=== PATIENT | male | born 1950 | race Caucasian/White ===

== ENCOUNTER 2024-04-01 17:11 | Inpatient (IN) | payer MEDICARE, SELFPAY ==
[2024-03-31] VITALS (13 sets, daily range): BP systolic 112–145; BP diastolic 59–88; PULSE 65–66; BMI 26.4; BMI 25.6
[2024-03-31 17:38] LABS: Glucose - Point of Care 98 mg/dl (70-99)
[2024-03-31 17:48] LABS: % Basophils 0.6 % (0-2); % Eosinophils 2.3 % (0-6); % Immature Granulocytes 0.4 % (0-0.5); % Lymphocytes 31.1 % (20.5-51.1); % Monocytes 9.8 % (1.7-9.3); % Neutrophils 55.8 % (42.2-75.2); Absolute Basophils 0.1 10^3/uL (0-0.2); Absolute Eosinophils 0.2 10^3/uL (0-0.7); Absolute Lymphocytes 2.6 10^3/uL (1.2-3.4); Absolute Monocytes 0.8 10^3/uL (0.1-0.6); Absolute Neutrophils 4.7 10^3/uL (1.4-6.5); Hematocrit 41.2 % (39.0-52.0); Hemoglobin 14.5 g/dL (13.0-18.0); Mean Corp Hgb Conc. 35.2 g/dL (33.0-37.0); Mean Corpuscular Hgb 32.1 pg (27.0-31.0); Mean Corpuscular Volume 91.2 fL (80.0-94.0); Nucleated Red Blood Cells % 0 % (-); Platelet Count 152 10^3/uL (130-400); Red Blood Cell Count 4.52 10^6/uL (4.70-6.10); Red Cell Dist. Width 12.9 % (11.5-14.5); White Blood Cell Count 8.4 10^3/uL (4.8-10.8)
[2024-03-31 17:56] LABS: APTT 24.2 Sec (23.4-35.0); INR 1.06; PT 14.1 Sec (11.4-14.6)
[2024-03-31 18:00] LABS: ALT (SGPT) 20 U/L (0-50); AST (SGOT) 24 U/L (17-59); Albumin 4.3 g/dl (3.5-5.0); Alkaline Phosphatase 78 U/L (38-126); Blood Urea Nitrogen 28 mg/dl (9-20); Calcium 9.5 mg/dl (8.4-10.2); Carbon Dioxide 27 mmol/L (22-30); Chloride 105 mmol/L (98-107); Estimated Creatinine Clearance 61 ml/min; Glucose 103 mg/dl (70-99); Potassium 4.3 mmol/L (3.5-5.1); Sodium 143 mmol/L (135-145); Total Bilirubin 0.7 mg/dl (0.2-1.3); Total Protein 7.1 g/dl (6.3-8.2); eGFR > 60.00
--- NOTE | 2024-03-31 18:02 | ED.CVA ---
History of Present Illness
<Efrain Chao Jr., PA-C - Last Filed: 03/31/24 18:46>
General
Chief Complaint: CVA/TIA Symptoms
Source: patient
Exam Limitations: none
Time Seen by Provider: 03/31/24 17:41
Nursing documentation reviewed up to this point in time: agreed with
Onset of Stroke Symptoms
Onset of symptoms known: Yes
Date of onset of symptoms: 03/31/24
Time of onset of symptoms: 17:00
Time pt last seen normal is known: Yes
Date last time pt seen normal: 03/31/24
Time last time pt seen normal: 17:00
History of Present Illness
History of Present Illness:
74-year-old male past medical history of hyperlipidemia presenting to the emergency department after he suddenly had slurred speech and difficulty playing the drums while he was at a show 1 hour prior to assessment in the ER. He claims that
initially he felt somewhat confused and had trouble playing the drums which she normally is very proficient at. He had slurred speech according to his friends he denies any similar symptoms in the past no history of smoking drinking or any
significant chronic medical conditions or daily medications. Patient is not on blood thinners. He lives at symptoms have been improving since onset. Denies any additional numbness weakness changes in vision or facial drooping.
Review of Systems
<Efrain Chao Jr., PA-C - Last Filed: 03/31/24 18:46>
Review of Systems
Allergies reviewed?: Yes
All Other Systems: ROS reviewed and negative except as documented in HPI and ROS
Phy Exam
<Efrain Chao Jr., PA-C - Last Filed: 03/31/24 18:46>
Physical Exam
Physical Exam:
GENERAL: Alert , in no apparent distress
EYE: pupils equal and reactive
NECK: Supple, no significant adenopathy.
ENT: o/p clr, mmm.
CARDIAC: Regular rate and rhythm .
LUNGS: Clear breath sounds bilaterally, no acute respiratory distress, no wheezes/rales/rhonchi
ABDOMEN: Soft, without focal tenderness, no r/g, no cvat
NEUROLOGICAL: Alert and oriented, patient with slurred speech 5-5 upper and lower extremity strength normal sensation with palpating bilaterally normal finger-nose and [id number] no pronator drift patient walking with steady gait
SKIN: Warm and dry, skin intact.
MUSCULOSKELETAL: No edema, well perfused.
PSYCH: Normal and appropriate interaction.
Scores
<Efrain Chao Jr., PA-C - Last Filed: 03/31/24 18:46>
NIH Stroke Score
Level of Consciousness: 0 - Alert
LOC Questions: 0-Answers both correctly
LOC Commands: 0-Performs both correctly
Best Horizontal Gaze: 0-Normal
Visual Hameed: 0=Normal, no visual loss
Facial Palsy: 0=Normal, symmetrical
Motor - Right Arm: 0=No drift 10 seconds
Motor - Left Arm: 0=No drift 10 seconds
Motor - Right Le-No drift 5 seconds
Motor - Left Le-No drift 5 seconds
Limb Ataxia: 0-Absent
Sensation: 0-Normal
Best Language: 0-No aphasia
Dysarthria: 1-Mild slurring
Extinction and Inattention: 0-No abnormality
Total Score:: 1
Course
<Efrain Chao Jr., PA-C - Last Filed: 03/31/24 18:46>
Orders/Labs/Results
Orders:
Orders
03/31/24 17:38
Electrocardiogram (*1) Urgent
Reason for Study: Other
Other Reason for Exam: Possible Stroke
CT HEAD STROKE ALERT W/o Cont Urgent
Comment:
Reason For Exam: slurred speech
Bedside Glucose- Treatment ONCE
Cardiac Monitoring- Treatment ONCE
EKG- Treatment ONCE
IV Insert/Care/Rem.- Treatment PRN
Vital Signs As Directed
Frequency: Other
Weight As Directed
Frequency: Once
Comment: ZERO STRETCHER SCALE FOR ACCURATE WEIGHT
O2 Therapy [RESP] Urgent
Titrate/Wean O2 to maintain O2 sat greater than (%): 93
Special Instructions: MAINTAIN CONTINUOUS O2 SATS > OR = 93%
03/31/24 17:39
Complete Blood Count/With Diff Urgent
Comprehensive Metabolic Panel Urgent
PTT Urgent
Prothrombin Time Urgent
Troponin I Urgent
03/31/24 17:42
CT HEAD/NECK ANG STROKE ALERT Urgent
Reason For Exam: slurred speech
03/31/24 18:01
0.9% Sodium Chloride 1000 ml [Nss] 1,000 ml IV BOLUS
03/31/24 18:27
MR Brain W/o & With Contrast Routine
Comment:
Reason For Exam: dysarthria
OK for patient to be off Cardiac Monitoring for MRI: No
Recent pill cam endoscopy?: No
Abnormal Lab Results
03/31/24
17:39
RBC 4.52 L 10^6/uL
(4.70-6.10)
MCH 32.1 H pg
(27.0-31.0)
MPV 11.0 H fL
(7.4-10.4)
Absolute Monos (auto) 0.8 H 10^3/uL
(0.1-0.6)
Monocytes % 9.8 H %
(1.7-9.3)
BUN 28 H mg/dl
(9-20)
Glucose 103 H mg/dl
(70-99)
03/31/24 17:39
03/31/24 17:39
Vital Signs
Initial and Last Documented VS:
Initial Vital Signs
Pulse Resp BP Pulse Ox
81 19 138/80 98
03/31/24 17:32 03/31/24 17:32 03/31/24 17:32 03/31/24 17:32
Last Documented Vital Signs
Pulse Resp BP Pulse Ox
76 20 138/80 99
03/31/24 18:00 03/31/24 18:00 03/31/24 17:32 03/31/24 18:00
<Warren Murrell, DO - Last Filed: 03/31/24 18:06>
Orders/Labs/Results
Orders:
Orders
03/31/24 17:38
Electrocardiogram (*1) Urgent
Reason for Study: Other
Other Reason for Exam: Possible Stroke
CT HEAD STROKE ALERT W/o Cont Urgent
Comment:
Reason For Exam: slurred speech
Bedside Glucose- Treatment ONCE
Cardiac Monitoring- Treatment ONCE
EKG- Treatment ONCE
IV Insert/Care/Rem.- Treatment PRN
Vital Signs As Directed
Frequency: Other
Weight As Directed
Frequency: Once
Comment: ZERO STRETCHER SCALE FOR ACCURATE WEIGHT
O2 Therapy [RESP] Urgent
Titrate/Wean O2 to maintain O2 sat greater than (%): 93
Special Instructions: MAINTAIN CONTINUOUS O2 SATS > OR = 93%
03/31/24 17:39
Complete Blood Count/With Diff Urgent
Comprehensive Metabolic Panel Urgent
PTT Urgent
Prothrombin Time Urgent
Troponin I Urgent
03/31/24 17:42
CT HEAD/NECK ANG STROKE ALERT Urgent
Reason For Exam: slurred speech
03/31/24 18:01
0.9% Sodium Chloride 1000 ml [Nss] 1,000 ml IV BOLUS
03/31/24 18:27
MR Brain W/o & With Contrast Routine
Comment:
Reason For Exam: dysarthria
OK for patient to be off Cardiac Monitoring for MRI: No
Recent pill cam endoscopy?: No
Abnormal Lab Results
03/31/24
17:39
RBC 4.52 L 10^6/uL
(4.70-6.10)
MCH 32.1 H pg
(27.0-31.0)
MPV 11.0 H fL
(7.4-10.4)
Absolute Monos (auto) 0.8 H 10^3/uL
(0.1-0.6)
Monocytes % 9.8 H %
(1.7-9.3)
BUN 28 H mg/dl
(9-20)
Glucose 103 H mg/dl
(70-99)
03/31/24 17:39
03/31/24 17:39
Vital Signs
Initial and Last Documented VS:
Initial Vital Signs
Pulse Resp BP Pulse Ox
81 19 138/80 98
03/31/24 17:32 03/31/24 17:32 03/31/24 17:32 03/31/24 17:32
Last Documented Vital Signs
Pulse Resp BP Pulse Ox
76 20 138/80 99
03/31/24 18:00 03/31/24 18:00 03/31/24 17:32 03/31/24 18:00
<Efrain Chao Jr., PA-C - Last Filed: 03/31/24 18:46>
MDM/Problems Addressed
MDM/Problems Addressed:
74-year-old male presenting to the emergency department today with concerns of slurred speech while playing the drums at a show prior to arrival roughly 1 hour prior to arrival. Denies take any blood thinners. Initially had some confusion as well.
Symptoms have been improving over the past hour. Was able to package his stuff up at the scene and walk into the ER. Denies any numbness weakness chest pain headache or any trauma. Stroke alert was called due to his dysarthria. Neurology saw
the patient within 5 minutes assessed the patient at bedside. Initial CT findings reviewed neurology recommended holding TNK for now. Patient reassessed with full resolution of symptoms plan to admit for further assessment monitoring and MRI.
<Efrain Chao Jr., PA-C - Last Filed: 03/31/24 18:46>
*Critical Care Note
Total Time (30-74mins, 75-104mins- exclusive of procedures): Critical care statement:
comment:
Critical care statement: A total of 40 minutes of critical care time was provided for this patient. This includes management of unstable vital signs, evaluation of the patient at bedside, reviewing the patient's pertinent medical records, discussion
with consultants, review of old EKGs and review of pertinent medical records. This time with separate from time utilized to perform the aforementioned documented procedures
<Efrain Chao Jr., PA-C - Last Filed: 03/31/24 18:46>
Update Note
Update Note:
1840: Patient reassessed now asymptomatic. Denies any ongoing symptoms or concerns. Plan to admit for MRI and further monitoring overnight.
ED Attending Note
<Efrain Chao Jr., PA-C - Last Filed: 03/31/24 18:46>
-
Portions of this chart may have been created with voice recognition software.� Occasional wrong word or��sound alike� substitutions may have occurred due to the inherent limitations of voice recognition software.
<Warren Murrell DO - Last Filed: 03/31/24 18:06>
ED Attending Note
Patient seen and examined by attending physician: Yes
I performed the substantive portion of visit, reviewed & personally made and approve the management plan that is documented in note by myself or MAINE.: Yes
ED Attending Note:
Seen with physician bilingual executive assistant examined independently acute onset of aphasia and confusion, symptoms improved, CT noted report noted neuroconsult noted
Discharge Plan
Departure
Patient Disposition: Admit
Date of Disposition: 03/31/24
Time of Disposition: 18:44
Admit to: Telemetry
Admit to doctor: Carla
Presentation/result/management discussed w/ accepting MD/DO: Hospitalist
Patient with high blood pressure during this ER visit?: No
Condition: Good
Covid-19: Not Applicable
Discharge Problem:
Dysarthria
Interventions
Interventions:
*Risk Screen - Suicide Last Done: 03/31/24 17:44
*General Assessment Last Done: 03/31/24 17:44
*Neglect/Abuse Screening Last Done: 03/31/24 17:44
ED- Fall Risk Assessment Last Done: 03/31/24 17:44
*ED COVID-19 Vaccine History Last Done: 03/31/24 17:44
ED- Pulmonary Assessment Last Done: 03/31/24 17:44
ED- Neurological Assessment Last Done: 03/31/24 18:01
ED- Cardiac Assessment Last Done: 03/31/24 17:44
Discharge Date and Time
Print Language: HONDURAN
--- NOTE | 2024-03-31 18:02 | CON.NEURO ---
Consultation
Order
Date of Consultation: 03/31/24
Requesting Provider: Jeremie Zuniga PA-C
Reason for Consult: Stroke alert
Called in: 17:35
At bedside: 17:40
CC: Slurred speech
HPI: This is a 74-year-old right-handed man who presented to [facility] on 03/31/[facility]24 with dysarthria. According to patient's friend Mr. Mosqueda continued to play drums and staring after this all was over around 5 PM today.
Following the above he was noted to have dysarthria and transient left-sided facial weakness.
ER VS: 138/80, 81, 19, T-pending.
Labs: Glucose�103, normal sodium, WBCs, GFR.
PMH: Dyslipidemia
PSH: tonsillectomy
SH: , non-smoker, retired, no history of excessive alcohol use
FH: No family history of
All:NKDA
ROS:Constitutional: Negative. Negative for chills, fever and unexpected weight change.
HENT: Negative for ear pain, hearing loss, tinnitus and trouble swallowing.
Eyes: Negative. Negative for photophobia, pain and visual disturbance.
Respiratory: Negative for cough, choking and shortness of breath.
Cardiovascular: Negative for chest pain, palpitations and leg swelling.
Gastrointestinal: Negative for abdominal pain and vomiting.
Endocrine: Negative. Negative for cold intolerance.
Genitourinary: Negative for dysuria, flank pain and urgency.
Musculoskeletal: Negative for back pain, gait problem, neck pain and neck stiffness.
Skin: Negative for rash.
Allergic/Immunologic: Negative. Negative for immunocompromised state.
Neurological: Positive for dysarthria, transient left-sided facial weakness
Psychiatric/Behavioral: Negative for behavioral problems, confusion and hallucinations.
General: Well developed. In no acute distress.
Cardio: Regular rate and rhythm without murmur. Extremities are without cyanosis or edema.
Neuro:
Mental Status: Alert, oriented to person, place, and date. Impaired attention and recall. Good fund of knowledge. Follows complex requests across the midline. Comprehension, naming, and repetition intact.
Cranial Nerves: . Pupils are equally round and reactive to light. EOMs full. Visual wiggins full to confrontation. No ptosis. No nystagmus. V1-V3 intact to light touch and pinprick bilaterally, symmetric. Face symmetric. Normal hearing AU.
The palate elevated well. SCMs and traps 5/5. Tongue midline. Mild to moderate dysarthria
Motor: Normal bulk and tone. No pronator or arm drift. Strength 5/5 throughout. No clonus.
Reflexes: No clonus at the ankle
Sensory: No extinction to double simultaneous stimuli
Coordination: No dysmetria or tremor.
Gait: deferred
NIH stroke score-1.
Assessment and Plan:
I. Acute lacunar syndrome. Not a candidate for IV thrombolysis due to low NIH stroke score and clinical improvement. Differential diagnosis includes focal seizure, less likely neuro muscular junction disorder.
II. DLP
III. Mild encephalopathy
-Continue Telemetry monitoring.
-Aspiration precautions
-Aspirin load
-Please check TFTs, urine tox, EtOH level, hemoglobin A1c
-Brain MRI without tiffany
-TTE
-Follow-up CTA head and neck
-PT.
-DVT prophylaxis.
-Case was discussed with patient's spouse and medical personnel
I personally reviewed all radiology and labs along with past medical records pertinent to current medical problems. Total time spent in patient care is 60 minutes.
Thank you for allowing us to participate in the care of this patient. We will continue to follow. Please do not hesitate to contact us with any questions or concerns.
Subjective/Objective
Subjective Data
Date of Service: March 31, 2024
Objective Data
Vital Signs
Pulse Resp BP Pulse Ox
76 20 138/80 99
03/31/24 18:00 03/31/24 18:00 03/31/24 17:32 03/31/24 18:00
Lab Results
03/31/24 17:39
03/31/24 17:39
Sodium 143 mmol/L (135-145) 03/31/24 17:39
Potassium 4.3 mmol/L (3.5-5.1) 03/31/24 17:39
BUN 28 mg/dl (9-20) H 03/31/24 17:39
Glucose 103 mg/dl (70-99) H 03/31/24 17:39
Calcium 9.5 mg/dl (8.4-10.2) 03/31/24 17:39
Patient Allergies
No Known Allergies Allergy (Unverified 03/31/24 17:33)
Vital Signs and Labs
-
Vital Signs and Labs:
Vital Signs
Pulse Resp BP Pulse Ox
76 20 138/80 99
03/31/24 18:00 03/31/24 18:00 03/31/24 17:32 03/31/24 18:00
Lab Results
03/31/24 17:39
03/31/24 17:39
PT 14.1 Sec (11.4-14.6) 03/31/24 17:39
INR 1.06 03/31/24 17:39
APTT 24.2 Sec (23.4-35.0) 03/31/24 17:39
Sodium 143 mmol/L (135-145) 03/31/24 17:39
Potassium 4.3 mmol/L (3.5-5.1) 03/31/24 17:39
BUN 28 mg/dl (9-20) H 03/31/24 17:39
Glucose 103 mg/dl (70-99) H 03/31/24 17:39
Calcium 9.5 mg/dl (8.4-10.2) 03/31/24 17:39
[2024-03-31 18:12] LABS: Troponin I < 0.012 ng/ml
[2024-03-31] MEDS: NSS 1000 IV (18:21)
--- NOTE | 2024-03-31 19:39 | HPS.HSE ---
Family Physician
-
Family Physician: Danelle Ramirez
Chief Complaint
-
Speech difficulty
History of Present Illness
Patient is a 74y M with PMH significant for dyslipidemia who presents to ED complaining of slurred speech and lack of coordination. Patient states that he was playing drums this afternoon and he noted that he had a runny nose. He sneezed twice
and following this his band-mate noted that he was playing off-beat / erratically. He asked the patient a question and - when he responded - he noted that the patient's speech was slurred. Patient reports mild headache diffusely. He felt
lightheaded and felt as if he was leaning to the L. He did not fall. He did not lose consciousness. He has full recall of the event.
Onset of his symptoms was about 4:30 PM. He presented to the ED for further evaluation. He started to improve within an hour and patient states that by 5:45 PM he was back to his normal self.
Patient has no complaints at present. He denies any prior history of similar symptoms.
Medical History
Past Medical History
Past Medical History: Reports Other
Additional Past Medical History:
Mild Dyslipidemia
Past Surgical History: Reports Other
Additional Past Surgical History:
T&A
Appendectomy
Social History
Tobacco: Non-smoker
Alcohol: None
Drug: None
Personal:
Living: With Family
Family History
Family History: Other (Father: CAD, at 65 secondary to [place]. Mother: Longevity)
Allergies / Home Medications
Allergies reflects when Allergies were last updated in [facility].
Home Medications with original date entered in [employer]
Allergy/Medication List:
Allergies
Allergy/AdvReac Type Severity Reaction Status Date / Time
No Known Allergies Allergy Unverified 03/31/24 17:33
Home Medications
ascorbic acid (vitamin C) 500 mg tablet (Vitamin C) 500 mg PO DAILY 03/31/24
cholecalciferol (vitamin D3) 25 mcg (1,000 unit) tablet (Vitamin D3) 25 mcg PO DAILY 03/31/24
zinc sulfate 50 mg zinc (220 mg) tablet 50 mg PO DAILY 03/31/24
Review of Systems
-
History Source: Patient
A 12 point ROS was completed and negative except as noted: Yes
Constitutional: Denies Fever or Chills
EENT: Reports Runny Nose; Denies Sore Throat
Respiratory: Denies Cough or Trouble Breathing
Cardiac: Denies Chest Pain or Palpitations
Abdomen/GI: Denies Abdominal Pain, Nausea, Vomiting or Diarrhea
: Denies Dysuria, Frequency or Flank Pain
Musculoskeletal: Denies Joint Pain or Edema
Neurological: Reports Dizzy, Headache and Other (Slurred speech.); Denies Weakness or Numbness
Psych: Denies Depression or Anxiety
Physical Exam
Vital Signs
Vital Signs
Pulse Resp BP Pulse Ox
76 20 138/80 99
03/31/24 18:00 03/31/24 18:00 03/31/24 17:32 03/31/24 18:00
Physical Exam
General: Other (74y M in no acute distress.)
HEENT: Moist mucous membranes and PERRLA
Respiratory: Clear; No Wheezes, Rales or Rhonchi
Cardiac: S1/S2 and Regular Rhythm; No Murmur
GI: Soft, Non Tender, Non Distended and Normal Bowel Sounds
Musculoskeletal: No Clubbing, No Cyanosis and No Edema
Neuro: AO x 3 and Other (Faint L facial droop and perhaps some very mild L sided weakness - though patient is R dominant.)
Psych: No Agitated or Anxious
Laboratory Results
-
03/31/24 17:39
03/31/24 17:39
Laboratory Results
PT 14.1 Sec (11.4-14.6) 03/31/24 17:39
INR 1.06 03/31/24 17:39
APTT 24.2 Sec (23.4-35.0) 03/31/24 17:39
Total Bilirubin 0.7 mg/dl (0.2-1.3) 03/31/24 17:39
AST 24 U/L (17-59) 03/31/24 17:39
ALT 20 U/L (0-50) 03/31/24 17:39
Alkaline Phosphatase 78 U/L (38-126) 03/31/24 17:39
Troponin I < 0.012 ng/ml 03/31/24 17:39
Impression/Plan
-
A/P: Patient is a 74y M with PMH significant for dyslipidemia who presents to ED complaining of slurred speech and lack of coordination.
CVA / TIA
- Observe overnight for further evaluation and treatment.
- CT shows no evidence of acute CVA. CTA unremarkable.
- Patient currently feels back to baseline - though I may appreciate vague L sided weakness on exam.
- Not tPA candidate given low NIH at present / improvement in symptoms.
- ASA daily.
- Check lipids, A1C, etc.
- Appreciate Neurology evaluation / input.
- Check MRI brain with / without in the AM for further evaluation.
- Follow for changes in neurologic exam overnight.
Cerebellar 'Lesion'
- CT done in the ED shows 1.2cm R cerebellar abnormality - not consistent with bleed, mass, etc.
- Area may be consistent with diminished coordination, but not slurred speech.
- Follow-up results of MRI as noted above.
- Appreciate Neuro input / recommendations.
DVT Prophylaxis: SCDs
Code Status: Full
--- NOTE | 2024-03-31 20:30 | TRANSFER ---
pt arrived from ED via stretcher. pt ambulated from stretcher, to standing scale, and then to bed without assistance. AAOx3. VSS. pt oriented to room, call beltran within reach. plan of care ongoing.
[2024-04-01] VITALS (7 sets, daily range): BP systolic 111–138; BP diastolic 38–71; PULSE 56–67
[2024-04-01 07:18] LABS: Hematocrit 39.9 % (39.0-52.0); Mean Corp Hgb Conc. 35.1 g/dL (33.0-37.0); Mean Corpuscular Hgb 32.4 pg (27.0-31.0); Mean Corpuscular Volume 92.4 fL (80.0-94.0); Mean Platelet Volume 11.3 fL (7.4-10.4); Platelet Count 140 10^3/uL (130-400); Red Blood Cell Count 4.32 10^6/uL (4.70-6.10); Red Cell Dist. Width 12.9 % (11.5-14.5); White Blood Cell Count 7.3 10^3/uL (4.8-10.8)
[2024-04-01 07:46] LABS: Blood Urea Nitrogen 25 mg/dl (9-20); Calcium 8.9 mg/dl (8.4-10.2); Carbon Dioxide 24 mmol/L (22-30); Chloride 108 mmol/L (98-107); Estimated Creatinine Clearance 77 ml/min; Glucose 91 mg/dl (70-99); HDL Cholesterol 50 mg/dl; LDL Cholesterol, Calculated 133 mg/dl; Potassium 4.4 mmol/L (3.5-5.1); Sodium 141 mmol/L (135-145); Total Cholesterol 205 mg/dl (50-199); Triglyceride 113 mg/dl (10-149); Very Low Density Lipoprotein 22 mg/dl (0-30); eGFR > 60.00
[2024-04-01] MEDS: LOW STRENGTH ASPIRIN 81 MG PO (08:04)
[2024-04-01 08:38] LABS: Glycohemoglobin (HgbA1c) 5.4 % (4.0-5.6)
--- NOTE | 2024-04-01 08:50 | W.PN.HOSP.TC ---
Today's Communication/Plan
-
ECHO and MRI
If neg will discharge
Assessment / Plan
Assessment / Plan
74-year-old with slurry speech and confusion
CTA-no abnormality
CT head-small region of increased attenuation in the right cerebellum
CVS: S1-S2 normal
Chest: CTA B/L
Abdomen: Soft, NT / Bowel sounds present
Extremities: No edema, normal pulses
MAGNETIC PROSPECTING OPERATOR: Non focal exam
#CVA / TIA symptoms
Aphasia and ( friend noted facial droop)
CT without any evidence of CVA CTA unremarkable
Continue neurochecks and NIH scale
Continue aspirin, plavix
Lipid panel shows LDL of 133 started on statin
MRI of the brain
ECHO per Neurology
Neurology evaluation
# Cerebellar lesion CT shows 1.2 cm right cerebellar abnormality
Await MRI with and without contrast
# DVT prophylaxis-SCDs
# Full code
D/W RN
D/W at bed side
Anticipated Discharge: Within 24 hours
Subjective/Interval History
-
Date of Service: April 01, 2024
Objective Data
-
Labs:
Laboratory Results
04/01/24
06:48
WBC 7.3
Hgb 14.0
Hct 39.9
Plt Count 140
Sodium 141
Potassium 4.4
Chloride 108 H
Carbon Dioxide 24
BUN 25 H
Creatinine 0.9
Glucose 91
Calcium 8.9
Vital Signs:
Vital Signs
Temp Pulse Resp BP Pulse Ox
97.6 F 56 16 129/71 99
04/01/24 07:15 04/01/24 07:15 04/01/24 07:15 04/01/24 07:15 04/01/24 07:15
I&O
03/31/24 04/01/24 04/02/24
06:59 06:59 06:59
Intake Total 480 / 480
Balance 480 / 480
--- NOTE | 2024-04-01 09:33 | PTOTSP ---
SOFTWARE QUALITY ENGINEER Evaluation
No signs concerning for aphasia observed. [place] Cognitive Assessment (MOCA) Version 8.1 score = 28/30, WNL (26 or greater). Patient with mild 'lisp' but 100% intelligible and reported this as chronic/baseline. No SOFTWARE QUALITY ENGINEER follow up for
speech/cognition warranted at this time.
--- NOTE | 2024-04-01 10:21 | W.PN.NEURO.1 ---
Today's Communication / Plan
-
.
Subjective/Objective
Subjective Data
Date of Service: April 01, 2024
Neurology follow-up Note.
Mr. Mosqueda states that his speech deficits have resolved within several hours from the onset. No reports of headaches, change in vision, strength or sensation.
He has been normotensive and afebrile.
LDL�133, TSH�3.7.
Brain MRI is pending
EKG: RBBB, QTc Int : 445 m
Labs: Glucose�103, normal sodium, WBCs, GFR.
CT head�no hemodynamically significant stenosis
PMH: Dyslipidemia, vitamin D deficiency
PSH: tonsillectomy
SH: , retired insurance specialist, non-smoker, no history of excessive alcohol use
FH: Mother at the age of 100, father in his 60s, had coronary artery disease
All:NKDA
ROS:Constitutional: Negative. Negative for chills, fever and unexpected weight change.
HENT: Negative for ear pain, hearing loss, tinnitus and trouble swallowing.
Eyes: Negative. Negative for photophobia, pain and visual disturbance.
Respiratory: Negative for cough, choking and shortness of breath.
Cardiovascular: Negative for chest pain, palpitations and leg swelling.
Gastrointestinal: Negative for abdominal pain and vomiting.
Endocrine: Negative. Negative for cold intolerance.
Genitourinary: Negative for dysuria, flank pain and urgency.
Musculoskeletal: Negative for back pain, gait problem, neck pain and neck stiffness.
Skin: Negative for rash.
Allergic/Immunologic: Negative. Negative for immunocompromised state.
Neurological: Positive for transient dysarthria and left facial weakness, chronic word finding difficulties
Psychiatric/Behavioral: Negative for behavioral problems, confusion and hallucinations.
General: Well developed. In no acute distress.
Cardio: Regular rate and rhythm without murmur. Extremities are without cyanosis or edema.
Neuro:
Mental Status: Alert, oriented to person, place, and date. Able to do serial sevens. Good fund of knowledge. Follows complex requests across the midline. Comprehension, naming, and repetition intact.
Cranial Nerves: . Pupils are equally round and reactive to light. EOMs full. Visual wiggins full to confrontation. No ptosis. No nystagmus. V1-V3 intact to light touch and pinprick bilaterally, symmetric. Face symmetric. Impaired l hearing AU.
The palate elevated well. SCMs and traps 5/5. Tongue midline. No dysarthria
Motor: Normal bulk and tone. No pronator or arm drift. Strength 5/5 throughout. No clonus.
Reflexes: No clonus at the ankle
Sensory: Normal light touch
Coordination: Intermittent resting head tremor. No dysmetria
Gait: deferred
Assessment and Plan:
I. TIA
II. Chronic mild expressive aphasia
III. Dyslipidemia
-Continue Telemetry monitoring.
-Continue aspirin 81 mg and Plavix 75 mg daily
-Please check vitamin B12 urine tox, EtOH level, hemoglobin A1c
-Brain MRI without tiffany
-TTE
-DVT prophylaxis.
-Case was discussed with patient's spouse and medical personnel
I personally reviewed all radiology and labs along with past medical records pertinent to current medical problems. Total time spent in patient care is 36 minutes.
Thank you for allowing us to participate in the care of this patient. We will continue to follow. Please do not hesitate to contact us with any questions or concerns.
Objective Data
Vital Signs
Temp Pulse Resp BP Pulse Ox
36.4 C 56 16 129/71 99
04/01/24 07:15 04/01/24 07:15 04/01/24 07:15 04/01/24 07:15 04/01/24 07:15
Lab Results
04/01/24 06:48
04/01/24 06:48
PT 14.1 Sec (11.4-14.6) 03/31/24 17:39
INR 1.06 03/31/24 17:39
APTT 24.2 Sec (23.4-35.0) 03/31/24 17:39
Sodium 141 mmol/L (135-145) 04/01/24 06:48
Potassium 4.4 mmol/L (3.5-5.1) 04/01/24 06:48
BUN 25 mg/dl (9-20) H 04/01/24 06:48
Glucose 91 mg/dl (70-99) 04/01/24 06:48
Calcium 8.9 mg/dl (8.4-10.2) 04/01/24 06:48
LDL Cholesterol, Calc 133 mg/dl 04/01/24 06:48
Patient Allergies
No Known Allergies Allergy (Unverified 03/31/24 17:33)
Vital Signs and Labs
-
Vital Signs and Labs:
Vital Signs
Temp Pulse Resp BP Pulse Ox
36.4 C 56 16 129/71 99
04/01/24 07:15 04/01/24 07:15 04/01/24 07:15 04/01/24 07:15 04/01/24 07:15
Lab Results
04/01/24 06:48
04/01/24 06:48
PT 14.1 Sec (11.4-14.6) 03/31/24 17:39
INR 1.06 03/31/24 17:39
APTT 24.2 Sec (23.4-35.0) 03/31/24 17:39
Sodium 141 mmol/L (135-145) 04/01/24 06:48
Potassium 4.4 mmol/L (3.5-5.1) 04/01/24 06:48
BUN 25 mg/dl (9-20) H 04/01/24 06:48
Glucose 91 mg/dl (70-99) 04/01/24 06:48
Calcium 8.9 mg/dl (8.4-10.2) 04/01/24 06:48
LDL Cholesterol, Calc 133 mg/dl 04/01/24 06:48
Medications
-
Medications:
Generic Name Dose Route Start Last Admin
Trade Name Freq PRN Reason Stop Dose Admin
Acetaminophen 650 mg 03/31/24 20:39
Acetaminophen 325 Mg Tablet PO 04/28/24 20:38
Q4HPRN PRN
Mild Pain / Temp > 101
Aspirin 81 mg 04/01/24 08:00 04/01/24 08:04
Aspirin 81 Mg Chewable Tablet PO 04/29/24 07:59 81 mg
DAILY JOCELYN Administration
Sodium Chloride 0 flush 03/31/24 21:00
Sodium Chloride 0.9% (Flush) Syringe IV 04/28/24 20:59
PER PROTOCOL JOCELYN
Home Medications
-
Home Medications
ascorbic acid (vitamin C) 500 mg tablet (Vitamin C) 500 mg PO DAILY Supplement 03/31/24
cholecalciferol (vitamin D3) 25 mcg (1,000 unit) tablet (Vitamin D3) 25 mcg PO DAILY Supplement 03/31/24
zinc sulfate 50 mg zinc (220 mg) tablet 50 mg PO DAILY Supplement 03/31/24
[2024-04-01] MEDS: PLAVIX 75 MG PO (11:15)
[2024-04-01 13:08] LABS: Vitamin B12 352 pg/ml (239-931)
--- NOTE | 2024-04-01 16:41 | CM ---
Alert awake oriented patient who lives with his Xochitl who lives in a 1 story home with 1 step to enter. He is independent in driving and in all activities of daily living.He was offered VN he declined need.[facility]y letter explained Copy given . Pt
declined to sign Posey.
No VN hx / No SNF history
Pharmacy [facility]
PCP DR Ramirez
PLAN Home Declined VN
--- NOTE | 2024-04-01 16:59 | W.PN.UPDATE ---
Update Note
Progress Note Update
MRI with stroke.
Cardiology consulted for FAROOQ/loop monitor
Results discussed with the patient and daughter who is a nurse.
D/W Cards
Changed to inpatient
total time spent today over 50 min
[2024-04-01] MEDS: LIPITOR 40 MG PO (17:22)
[2024-04-02 03:15] VITALS: BP 118/65
--- NOTE | 2024-04-02 07:31 | CON.CAR ---
Addendum entered and electronically signed by Virgilio Armstrong MD 04/02/24 12:03:
I saw and examined the patient.
The Blue Print Control Clerk's note was reviewed and I agree with the note.
Comment:
GEN: No distress, awake, Ox3
HEENT: supple, anicteric, mmm
LUNGS: CTA, no wheezes/rales
CV: Reg, S1/S2, 1/6 syst LSB, no gallop
ABD: soft, BS+, NT/ND
EXT: No edema
NEURO: Gross non-focal
SKIN: No rash
Plan:
He presents with an acute CVA by MRI. We are asked to see him to evaluate for cardiac source of emboli.
Will proceed with transesophageal echo to look for cardiac source of emboli.
Will check outpatient 2-week monitor if FAROOQ is unremarkable for clot.
Continue aspirin, Plavix, and atorvastatin.
Goal LDL should be below 70.
Original Note:
Consultation
Consultation Request
Date/Time Consultation Requested: 04/01/24 at 1634
Date/Time Consultation Performed: 04/02/24 at 0724
Requesting Provider: Dr. Frost
Performing Provider: Dr. Armstrong
Reason for Consultation: CVA
Medical History
-
History of Present Illness:
Patient came to ER on Sunday with dysarthria and trouble playing the drums which was unusual for him and was admitted for possible TIA and cardiology is now consulted. Patient was at a concert playing the drums on Sunday when he started with
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 Patient was brought to ER and there was concern for TIA and he was admitted. CT scan of the head in the ER showed no evidence of acute infarct
although there was a small region of increased attenuation in the right cerebellum of unclear etiology. Patient then had CTA of the head that did not show any additional abnormality in the cerebellum and also there was no evidence of high-grade
stenosis or occlusion in the head or neck. MRI of the brain performed 04/01/2024 showed small foci of restricted diffusion within the right insula/subinsular white matter as well as along the superior right precentral gyrus consistent with acute
infarction and neurology is concerned this could represent embolic phenomenon. Cardiology has been consulted. Telemetry reviewed by me shows no evidence of atrial arrhythmia. Transthoracic echo shows preserved EF without valve disease and no
obvious evidence of clot. Patient reports his symptoms have resolved. He had somewhat similar symptoms with confusion in the setting of fever and COVID 1 to 2 years ago which family thought may have been a TIA at that time.
PMH:
None
Past Medical History
Past Medical History: Other (in HPI)
Past Surgical History: Appendectomy and Tonsilectomy
Social History
Tobacco: Non-Smoker
Alcohol: None
Drug: None
Personal:
Living: With Family
Family History
Family History: CAD
Allergies / Home Medications
Allergy/AdvReac Type Severity Reaction Status Date / Time
No Known Allergies Allergy Unverified 03/31/24 17:33
�Medication �Instructions �Recorded �Confirmed �Type
ascorbic acid (vitamin C) 500 mg 500 mg PO DAILY Supplement 03/31/24 03/31/24 History
tablet (Vitamin C)
cholecalciferol (vitamin D3) 25 25 mcg PO DAILY Supplement 03/31/24 03/31/24 History
mcg (1,000 unit) tablet (Vitamin
D3)
zinc sulfate 50 mg zinc (220 mg) 50 mg PO DAILY Supplement 03/31/24 03/31/24 History
tablet
Review of Systems
-
History Source: Patient
All other systems: Negative unless noted
Physical Exam
Vital Signs
Temp Pulse Resp BP Pulse Ox
98.9 F 62 20 118/65 98
04/02/24 03:15 04/02/24 03:15 04/02/24 03:15 04/02/24 03:15 04/02/24 03:15
GEN: NAD. AAOx3
HEENT: EOMI, MMM
LUNGS: CTA B/L, no wheeze
CV: SR on tele. Reg, S1/S2, no murmur
ABD: soft, BS+, NT, ND
EXT: No clubbing, cyanosis, lesions or edema B/L
NEURO: Gross non-focal
SKIN: Warm, dry and pink. No rash
Lab Results
04/01/24 06:48
04/01/24 06:48
Troponin I < 0.012 ng/ml 03/31/24 17:39
Impression / Plan
-
PCP: Dr. Danelle Ramirez
Cardiology: None prior to admission
Impression:
Admitted with dysarthria and confusion 03/31/24
Right hemispheric CVA by MRI 04/01/24
Echo 04/01/24: EF 60 to 65%, normal diastolic function, normal RV size and function, no significant valvular pathology
Plan:
-Patient came to ER on Sunday with dysarthria and trouble playing the drums which was unusual for him and was admitted for possible TIA and cardiology is now consulted. Patient was at a concert playing the drums on Sunday when he started with
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 Patient was brought to ER and there was concern for TIA and he was admitted. CT scan of the head in the ER showed no evidence of acute infarct
although there was a small region of increased attenuation in the right cerebellum of unclear etiology. Patient then had CTA of the head that did not show any additional abnormality in the cerebellum and also there was no evidence of high-grade
stenosis or occlusion in the head or neck. MRI of the brain performed 04/01/2024 showed small foci of restricted diffusion within the right insula/subinsular white matter as well as along the superior right precentral gyrus consistent with acute
infarction and neurology is concerned this could represent embolic phenomenon. Cardiology has been consulted. Telemetry reviewed by me shows no evidence of atrial arrhythmia. Transthoracic echo shows preserved EF without valve disease and no
obvious evidence of clot. Patient reports his symptoms have resolved. He had somewhat similar symptoms with confusion in the setting of fever and COVID 1 to 2 years ago which family thought may have been a TIA at that time.
-Talked with patient's daughter, Kinsey, by phone and reviewed MRI and hospitalization thus far. Patient and daughter in agreement with FAROOQ.
-Also then called patient's at his request and explained FAROOQ and plans to her as well, patient appreciated this.
-Pending FAROOQ will continue with aspirin and Plavix vs transitioning to DOAC.
-ECG and tele reviewed by me, has been in SR throughout. Will arrange for a 2 week Rhythm Star monitor as well.
[2024-04-02 07:52] VITALS: BP 130/76; BP 132/74; BP 137/74; PULSE 65; PULSE 67; PULSE 70
[2024-04-02] MEDS: LOW STRENGTH ASPIRIN 81 MG PO (09:33)
[2024-04-02] MEDS: PLAVIX 75 MG PO (09:33)
[2024-04-02] MEDS: VITAMIN B-12 1000 MCG PO (09:33)
--- NOTE | 2024-04-02 11:52 | W.PN.NEURO.1 ---
Today's Communication / Plan
-
.
Subjective/Objective
Subjective Data
Date of Service: April 02, 2024
Neurology follow-up Note.
Mr. Mosqueda reports no complaints. No recurrent deficits abnormal movements.
FAROOQ is scheduled for today.
Labs: vit b12 352, HbA1c�5.4
CTA head/neck�no hemodynamically significant stenosis
PMH: Dyslipidemia, vitamin D deficiency
PSH: tonsillectomy
SH: , retired insurance underwriting assistant, non-smoker, no history of excessive alcohol use
FH: Mother at the age of 100, father in his 60s, had coronary artery disease
All:NKDA
ROS:Constitutional: Negative. Negative for chills, fever and unexpected weight change.
HENT: Negative for ear pain, hearing loss, tinnitus and trouble swallowing.
Eyes: Negative. Negative for photophobia, pain and visual disturbance.
Respiratory: Negative for cough, choking and shortness of breath.
Cardiovascular: Negative for chest pain, palpitations and leg swelling.
Gastrointestinal: Negative for abdominal pain and vomiting.
Endocrine: Negative. Negative for cold intolerance.
Genitourinary: Negative for dysuria, flank pain and urgency.
Musculoskeletal: Negative for back pain, gait problem, neck pain and neck stiffness.
Skin: Negative for rash.
Allergic/Immunologic: Negative. Negative for immunocompromised state.
Neurological: Positive for transient dysarthria and left facial weakness, chronic word finding difficulties
Psychiatric/Behavioral: Negative for behavioral problems, confusion and hallucinations.
General: Well developed. In no acute distress.
Cardio: Regular rate and rhythm without murmur. Extremities are without cyanosis or edema.
Neuro:
Mental Status: Alert, oriented to person, place, and date. Able to do serial sevens. Good fund of knowledge. Follows complex requests across the midline. Comprehension, naming, and repetition intact.
Cranial Nerves: . Pupils are equally round and reactive to light. EOMs full. Visual wiggins full to confrontation. No ptosis. No nystagmus. V1-V3 intact to light touch and pinprick bilaterally, symmetric. Face symmetric. Impaired hearing AU.
The palate elevated well. SCMs and traps 5/5. Tongue midline. No dysarthria
Motor: Normal bulk and tone. No pronator or arm drift. Strength 5/5 throughout. No clonus.
Reflexes: No clonus at the ankle
Sensory: Normal light touch
Coordination: Intermittent resting head tremor. No dysmetria
Gait: deferred
Assessment and Plan:
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
II. Dyslipidemia
III. SNHL
-Continue Telemetry monitoring.
-Continue aspirin 81 mg lifelong and Plavix 75 mg daily for 21 days
-Brain MRI without tiffany
-FAROOQ
-Cardiology follow-up
-OP Neurology follow up in 2-3 weeks
I personally reviewed all radiology and labs along with past medical records pertinent to current medical problems. Total time spent in patient care is 36 minutes.
Thank you for allowing us to participate in the care of this patient. Please do not hesitate to contact us with any questions or concerns.
Objective Data
Vital Signs
Temp Pulse Resp BP Pulse Ox
36.8 C 65 16 137/74 99
04/02/24 07:52 04/02/24 07:52 04/02/24 07:52 04/02/24 07:52 04/02/24 07:52
Lab Results
04/01/24 06:48
04/01/24 06:48
PT 14.1 Sec (11.4-14.6) 03/31/24 17:39
INR 1.06 03/31/24 17:39
APTT 24.2 Sec (23.4-35.0) 03/31/24 17:39
Sodium 141 mmol/L (135-145) 04/01/24 06:48
Potassium 4.4 mmol/L (3.5-5.1) 04/01/24 06:48
BUN 25 mg/dl (9-20) H 04/01/24 06:48
Glucose 91 mg/dl (70-99) 04/01/24 06:48
Calcium 8.9 mg/dl (8.4-10.2) 04/01/24 06:48
LDL Cholesterol, Calc 133 mg/dl 04/01/24 06:48
Vitamin B12 352 pg/ml (626-931) 04/01/24 10:35
Patient Allergies
No Known Allergies Allergy (Unverified 03/31/24 17:33)
[2024-04-02 11:55] VITALS: BP 135/72
--- NOTE | 2024-04-02 14:37 | W.PN.HOSP.TC ---
Addendum entered and electronically signed by Lisa Richmond MD 04/02/24 14:54:
More than 30 minutes spent in discharge including
Final examination of the patient
Summarizing hospital stay
Instructions for continuing care to all relevant caregivers
Preparation of discharge records, prescriptions, and referral forms
Total time spent (in minutes): 32 min
Original Note:
Today's Communication/Plan
-
Await USS and discharge if neg
for OP Cards monitor
Assessment / Plan
Assessment / Plan
74-year-old with slurry speech and confusion
CTA-no abnormality
CT head-small region of increased attenuation in the right cerebellum
FAROOQ-EF 60 to 65%. No thrombus in the left atrial appendage. Small PFO
CVS: S1-S2 normal
Chest: CTA B/L
Abdomen: Soft, NT / Bowel sounds present
Extremities: No edema, normal pulses
CLIENT SERVICE PROFESSIONAL: Non focal exam
# CVA / TIA symptoms
Aphasia and ( friend noted facial droop)
CT without any evidence of CVA CTA unremarkable
Continue Aspirin, Plavix
Lipid panel shows LDL of 133 started on statin
MRI of the brain-small foci of restricted diffusion within the right insular/subinsular white matter as well as along the superior right precentral gyrus consistent with acute infarction
FAROOQ with a small PFO. Ultrasound of the lower extremities ordered
# Cerebellar lesion CT shows 1.2 cm right cerebellar abnormality
No mention of abnormalities in the cerebellar area on the MRI
# DVT prophylaxis-SCDs
# Full code
D/W RN
D/W at bed side
Discussed with neurology and cardiology
Outpatient monitor will be arranged and if negative loop recorder will be discussed.
Anticipated Discharge: Today
Subjective/Interval History
-
Date of Service: April 02, 2024
Objective Data
-
Vital Signs:
Vital Signs
Temp Pulse Resp BP Pulse Ox
98 F 56 18 135/72 98
04/02/24 11:55 04/02/24 11:55 04/02/24 11:55 04/02/24 11:55 04/02/24 11:55
I&O
04/01/24 04/02/24 04/03/24
06:59 06:59 06:59
Intake Total 480 / 480 1080 / 1080
Balance 480 / 480 1080 / 1080
--- NOTE | 2024-04-02 14:54 | W.DS.TRANS ---
Addendum entered and electronically signed by Lisa Richmond MD 04/02/24 14:58:
Dictation- [id number]
Original Note:
DC Summary - Catering Coordinator
-
Discharge Instructions:
Discharge Diagnosis/Procedures Stroke
PFO
Diet Low Cholesterol
Activity As tolerated
Instructions:
Stand-Alone Forms:
Changes to Home Medications: Yes
Discharge Medications:
DC Medications w/original date entered in [employer]
ascorbic acid (vitamin C) 500 mg tablet (Vitamin C) 500 mg PO DAILY Supplement 03/31/24
cholecalciferol (vitamin D3) 25 mcg (1,000 unit) tablet (Vitamin D3) 25 mcg PO DAILY Supplement 03/31/24
aspirin 81 mg chewable tablet 81 mg PO DAILY Blood clot prevention/tx #0 tabs 04/02/24
atorvastatin 40 mg tablet 40 mg PO QPM High cholesterol #30 tabs 04/02/24
clopidogrel 75 mg tablet 75 mg PO DAILY Blood clot prevention/tx #20 tabs 04/02/24
cyanocobalamin (vitamin B-12) 1,000 mcg tablet 1,000 mcg PO DAILY low normal B12 #0 tabs 04/02/24
Home Medication Changes
new
aspirin 81 mg chewable tablet 81 mg PO DAILY Blood clot prevention/tx #0 tabs 04/02/24
atorvastatin 40 mg tablet 40 mg PO QPM High cholesterol #30 tabs 04/02/24
clopidogrel 75 mg tablet 75 mg PO DAILY Blood clot prevention/tx #20 tabs 04/02/24
cyanocobalamin (vitamin B-12) 1,000 mcg tablet 1,000 mcg PO DAILY low normal B12 #0 tabs 04/02/24
Pending Results: No
[2024-04-02 15:18] VITALS: BP 144/69
--- NOTE | 2024-04-02 16:43 | CM ---
Spoke with pt in room with his family.
Py changed to inpatient IMM given explained signed on chart,
Offered Vn he declined need.
He said his family will drive him home.
PLAN Home no needs
[2024-04-02] MEDS: LIPITOR 40 MG PO (17:16)
== END 2024-04-02 17:37 | disposition home or self-care (01) | DRG 65 ==
LOC: 4 EAST ACU 17:11
PROVIDERS: Physician Assistant; ADMITTING PHYSICIAN Hospitalist; ATTENDING PHYSICIAN Hospitalist; CONSULT PHYSICIAN Psychiatry & Neurology Neurology; EMERGENCY PHYSICIAN Emergency Medicine; FAMILY PHYSICIAN Internal Medicine; OTHER PHYSICIAN Internal Medicine Cardiovascular Disease
DX: I63.412 Cerebral infarction due to embolism of left middle cerebral artery (principal); G81.94 Hemiplegia, unspecified affecting left nondominant side; G93.40 Encephalopathy, unspecified; Q21.12 Patent foramen ovale; R47.81 Slurred speech; E78.5 Hyperlipidemia, unspecified; R47.1 Dysarthria and anarthria; R47.01 Aphasia; R27.9 Unspecified lack of coordination; G46.7 Other lacunar syndromes; R29.810 Facial weakness; E55.9 Vitamin D deficiency, unspecified; Z82.49 Family history of ischemic heart disease and other diseases of the circulatory system; Z79.82 Long term (current) use of aspirin
CPT/HCPCS: 70450; 70496; 70498; 70553; 80048; 80053; 80061; 82607; 82962; 83036; 84443; 84484; 85025; 85027; 85610; 85730; 92523; 93005; 93306; 93312; 93320; 93325; 93970; 96360; 97165; 99285; A9575; Q9967

== ENCOUNTER 2024-06-16 06:39 | Day surgery (SDC) | payer MEDICARE, SELFPAY ==
--- NOTE | 2024-06-16 07:58 | ITS.CL.IMPLP ---
Batting Machine Operator Insulation - Implant Loop
Implant Loop
Procedure Report:
Date of Procedure: June 16, 2024
Primary Care Provider: Dr. Aida Ramirez
Primary Melting Furnace Skimmer: Dr. Todd Armstrong
Procedure: Insertable Loop Recorder Implantation
Indication:
Cryptogenic CVA
Procedure:
The patient was brought to the procedure area in a fasting state. The anterior chest was prepped and draped in standard sterile fashion. The fourth intercostal space along the left sternal border was identified and this area was anesthetized with 10
mL of 1% lidocaine. After gathering the skin in this area, a small punch incision was made at approx intercostal space 4-5 at left costo-sternal junction using the provided scalpel/punch tool. The loop recorder was loaded into the tunneling device.
A tunnel was created in the subcutaneous tissue at a 45� angle along the coronal plane away from the sternum and towards the left flank. The tunneling device was inverted and the plunger was depressed, inserting the loop recorder into the
subcutaneous space. The tunneling device was removed. Manual pressure provide hemostasis. Adequate signal was confirmed. The skin was closed with steri-strips. The estimated blood loss was < 1 cc. A clean dressing was placed over the wound.
There were no complications.
Implant:
[employer] Reveal LINQ
Conclusion: Uncomplicated implantation of loop recorder.
Recommendation: Routine ILR care.
Copy:
Dr. Aida Ramirez
Dr. Todd Armstrong
== END 2024-06-16 08:48 | disposition home or self-care (01) ==
LOC: CATH 06:39
PROVIDERS: ATTENDING PHYSICIAN Internal Medicine Cardiovascular Disease; FAMILY PHYSICIAN Internal Medicine; OTHER PHYSICIAN Internal Medicine Cardiovascular Disease
DX: Z09 Encounter for follow-up examination after completed treatment for conditions other than malignant neoplasm (principal); Z86.73 Personal history of transient ischemic attack (TIA), and cerebral infarction without residual deficits
CPT/HCPCS: 33285; C1764

== ENCOUNTER → 2025-01-06 08:59 | Outpatient (REF) | payer MEDICARE, SELFPAY | LOC: RAD 08:59 | PROVIDERS: ATTENDING PHYSICIAN Internal Medicine | DX: E78.00 Pure hypercholesterolemia, unspecified (principal) | CPT/HCPCS: 75571 ==